=== PATIENT | female | born 1990 | race Two or more races ===

== ENCOUNTER 2025-01-03 11:26 | Outpatient (CLI) | payer OTHER | END 2025-01-03 11:35 | disposition home or self-care (01) | LOC: PRENATAL 11:26 | PROVIDERS: ATTEND Obstetrics & Gynecology Maternal & Fetal Medicine | DX: O26.849 Uterine size-date discrepancy, unspecified trimester (principal); O28.5 Abnormal chromosomal and genetic finding on antenatal screening of mother; O34.219 Maternal care for unspecified type scar from previous cesarean delivery; O14.90 Unspecified pre-eclampsia, unspecified trimester; Z3A.18 18 weeks gestation of pregnancy ==

== ENCOUNTER 2025-01-03 12:08 | Outpatient (CLI) | payer OTHER | END 2025-01-03 12:18 | disposition home or self-care (01) | LOC: LAB 12:08 | PROVIDERS: ATTEND Obstetrics & Gynecology Maternal & Fetal Medicine | DX: O28.5 Abnormal chromosomal and genetic finding on antenatal screening of mother (principal); O28.3 Abnormal ultrasonic finding on antenatal screening of mother ==

== ENCOUNTER → 2025-01-24 11:21 | Outpatient (CLI) | payer OTHER | END | disposition home or self-care (01) | LOC: PRENATAL 11:21 | PROVIDERS: ATTEND Obstetrics & Gynecology Maternal & Fetal Medicine | DX: O44.00 Complete placenta previa NOS or without hemorrhage, unspecified trimester (principal); O28.5 Abnormal chromosomal and genetic finding on antenatal screening of mother; O34.219 Maternal care for unspecified type scar from previous cesarean delivery; O14.90 Unspecified pre-eclampsia, unspecified trimester; Z3A.21 21 weeks gestation of pregnancy ==

== ENCOUNTER → 2025-03-21 14:33 | Outpatient (CLI) | payer OTHER | END | disposition home or self-care (01) | LOC: PRENATAL 14:33 | PROVIDERS: ATTEND Obstetrics & Gynecology Maternal & Fetal Medicine | DX: O26.843 Uterine size-date discrepancy, third trimester (principal); O36.8130 Decreased fetal movements, third trimester, not applicable or unspecified; O28.5 Abnormal chromosomal and genetic finding on antenatal screening of mother; O34.219 Maternal care for unspecified type scar from previous cesarean delivery; O14.93 Unspecified pre-eclampsia, third trimester; Z3A.28 28 weeks gestation of pregnancy ==

== ENCOUNTER 2025-04-27 08:10 | Outpatient (CLI) | payer OTHER | END 2025-04-27 08:11 | disposition home or self-care (01) | LOC: PRENATAL 08:10 | PROVIDERS: ATTEND Obstetrics & Gynecology Maternal & Fetal Medicine | DX: O26.843 Uterine size-date discrepancy, third trimester (principal); O36.8130 Decreased fetal movements, third trimester, not applicable or unspecified; O28.5 Abnormal chromosomal and genetic finding on antenatal screening of mother; O34.219 Maternal care for unspecified type scar from previous cesarean delivery; O14.90 Unspecified pre-eclampsia, unspecified trimester; O32.9XX0 Maternal care for malpresentation of fetus, unspecified, not applicable or unspecified; Z3A.34 34 weeks gestation of pregnancy ==